=== PATIENT | male | born 1980 | race Caucasian/White ===

== ENCOUNTER 2019-06-04 23:01 | Emergency (ER) | payer SELFPAY ==
--- NOTE | 2019-06-05 02:02 | EDM.PDOC ---
ED HPI GENERAL MEDICAL PROBLEM - General Chief Complaint: Flank Pain Stated Complaint: LEFT SIDE PAIN Time Seen by Provider: 06/05/19 01:17 Source of Information: Reports: Patient History Limitations: Reports: No Limitations - History of Present Illness INITIAL COMMENTS - FREE TEXT/NARRATIVE: Mr. Daily is a very pleasant 39-year-old man with no chronic medical issues who states he developed sudden onset left flank pain around 22:15 to 22:30 tonight. The pain is stabbing and sharp in character. It does not radiate anywhere. It is worse if he is supine or if he takes a deep breath, otherwise, the patient has not identified any modifiers. He has not had associated fever, nausea, vomiting, constipation, diarrhea, urinary symptoms, or gross hematuria. The patient denies recent lower extremity edema. The patient states that he had similar symptoms, brief, about 3 times over the past week. The patient did not take any [id number] or home remedies prior to coming to the ED. The patient does not have a PCP. His vaccinations are not up-to-date, and he has not received an influenza vaccine this season. Left Flank Pain Score (Numeric/FACES): 10 - Related Data Allergies Allergy/AdvReac Type Severity Reaction Status Date / Time No Known Allergies Allergy Verified 06/04/19 23:05 Home Meds: Home Meds diphenhydrAMINE [Benadryl] 50 mg PO ONCALL PRN 06/04/19 [History] Orphenadrine [Norflex] 100 mg PO BID PRN #14 tab 06/07/19 [Rx] Past Medical History Endocrine/Metabolic History: Reports: Obesity/BMI 30+ Social & Family History - Tobacco Use Smoking Status *Q: Never Smoker - Alcohol Use Alcohol Use History: No - Recreational Drug Use Recreational Drug Use: No - Living Situation & Occupation Living situation: Reports: Single, with Significant Other (Fiance), with Family (4 kids) Occupation: Employed ([employer]) ED ROS GENERAL - Review of Systems Review Of Systems: ROS reveals no pertinent complaints other than HPI. ED EXAM, GENERAL - Physical Exam Exam: See Below Exam Limited By: No Limitations General Appearance: Alert, WD/WN, No Apparent Distress Eye Exam: Bilateral Eye: EOMI, Normal Inspection Ears: Normal External Exam, Hearing Grossly Normal Nose: Normal Inspection Throat/Mouth: Normal Inspection, Normal Lips, Normal Voice, No Airway Compromise Head: Atraumatic, Normocephalic Neck: Normal Inspection, Full Range of Motion Respiratory/Chest: No Respiratory Distress, Lungs Clear, Normal Breath Sounds, No Accessory Muscle Use Cardiovascular: Normal Peripheral Pulses, Regular Rate, Rhythm, No Edema, No Gallop, No JVD, No Murmur, No Rub Peripheral Pulses: 4+: Radial (L), Radial (R) GI/Abdominal: Normal Bowel Sounds, Soft, Non-Tender, No Organomegaly, No Distention, No Abnormal Bruit, No Mass (Male) Exam: Deferred Rectal (Males) Exam: Deferred Back Exam: Normal Inspection, Full Range of Motion. No: CVA Tenderness (L), CVA Tenderness (R) Extremities: Normal Inspection, Normal Range of Motion, No Pedal Edema, Normal Capillary Refill Neurological: Alert, Oriented, Normal Cognition, No Motor/Sensory Deficits Psychiatric: Normal Affect Skin Exam: Warm, Dry, Intact, Normal Color, No Rash Course - Vital Signs Last Recorded V/S: Last Vital Signs Temp 37.6 C 06/04/19 23:05 Pulse 123 H 06/04/19 23:05 Resp 22 H 06/04/19 23:05 BP 200/116 H 06/04/19 23:05 Pulse Ox 97 06/04/19 23:05 - Orders/Labs/Meds Labs: Laboratory Tests 06/04/19 06/05/19 Range/Units 23:16 00:14 D-Dimer, Quantitative 0.36 (0.19-0.50) mg/L Urine Color Yellow (Yellow) Urine Appearance Clear (Clear) Urine pH 6.0 (5.0-8.0) Ur Specific [place] > or = 1.030 (1.005-1.030) Urine Protein 1+ H (Negative) Urine Glucose (UA) Negative (Negative) Urine Ketones Negative (Negative) Urine Occult Blood Negative (Negative) Urine Nitrite Negative (Negative) Urine Bilirubin Negative (Negative) Urine Urobilinogen 0.2 (0.2-1.0) Ur Leukocyte Esterase Negative (Negative) Urine RBC 0-5 (0-5) /hpf Urine WBC 0-5 (0-5) /hpf Ur Epithelial Cells 0-5 (0-5) /hpf Urine Bacteria Not seen (FEW) /hpf Urine Mucus Not seen (FEW) /hpf Meds: Medications Discontinued Medications Generic Name Dose Route Start Last Admin Trade Name Khadijah PRN Reason Stop Dose Admin Ibuprofen 600 mg 06/05/19 02:47 06/05/19 02:59 Motrin PO 06/05/19 02:48 600 mg ONETIME ONE Administration Orphenadrine Citrate 100 mg 06/05/19 02:47 06/05/19 03:00 Norflex PO 06/05/19 02:48 100 mg ONETIME STA Administration - Re-Assessments/Exams Free Text/Narrative Re-Assessment/Exam: 06/05/19 01:54 The patient's initial presentation was very suggestive of a ureterolith, however , his urinalysis found no blood. About 20% of ureterolith's have no blood in the urine, so that does not mean that a ureterolith has been ruled out, however , the patient's pain has since diminished significantly, now down to about a "2 " from an initial "6". Under those circumstances, I am not recommending a CT scan of the abdomen and pelvis, as that would be unnecessary radiation and cost , given that the patient has likely passed the stone. The patient mentioned, however, that his pain is made worse when he took a deep breath, suggesting a pulmonary embolus. Additionally, his pain did not radiate to the abdomen or groin, which kidney stones traditionally do. We therefore agreed that we will check a D-dimer to rule out a PE, and if elevated, a CT angiogram of his chest. The patient went on to mention, however, that on about 3 occasions over the past week, when he reached or leaned, he had similar, although less severe pain , now suggesting a musculoskeletal etiology. If the patient's D-dimer returns negative, I will conclude that he either had a ureterolith that has already passed, or a muscle spasm, and I will treat with Norflex and ibuprofen. 06/05/19 02:50 The patient's D-dimer returned within normal limits at 0.36. As above, the patient is most likely suffering from a muscle spasm, although a passed a ureterolith is also possible. The patient will be started on Norflex and ibuprofen, and I will prescribe a 7-day course of Norflex in addition. The patient declined an offer for referral to a PCP. He also declined an offer for an influenza vaccine. Departure - Departure Time of Disposition: 02:51 Disposition: Home, Self-Care 01 Condition: Good Clinical Impression: Muscle spasm of back - Discharge Information *PRESCRIPTION DRUG MONITORING PROGRAM REVIEWED*: Not Applicable *COPY OF PRESCRIPTION DRUG MONITORING REPORT IN PATIENT JAKE: Not Applicable Prescriptions: Orphenadrine [Norflex] 100 mg PO BID PRN #14 tab PRN Reason: Spasms Instructions: Muscle Cramps and Spasms, [id number] Referrals: PCP,None [Primary Care Provider] - Forms: ED Department Discharge Additional Instructions: You were seen in the emergency room for sudden onset left flank pain. Workup in the ER included a urinalysis and a D-dimer. Your urinalysis showed no blood, and your D-dimer returned within normal limits , indicating that you do not have a blood clot in your lungs. Based on your history, physical exam, and ER test, the cause of your left flank pain was most likely a muscle spasm, although it is also possible that you passed a kidney stone. You have been started on the muscle relaxant Norflex. A prescription for Norflex has been sent to [facility], located in the [facility] across [address] from the hospital. Take one tablet of Norflex every 12 hours, starting this evening, 06/05/2019, as prescribed. In addition to Norflex, you may also take [id number] ibuprofen, 2 to 3 tablets (400-600 mg) every 8 hours, with food, as needed for discomfort. If any other problems, please do not hesitate to return to the ER.
[2019-06-05] MEDS ORDERED: Ibuprofen 600 MG Tab PO ONE (02:47)
[2019-06-05] MEDS ORDERED: Orphenadrine 100 MG Tab.ER PO STA (02:47)
== END 2019-06-05 03:04 | disposition home or self-care (01) ==
LOC: JD.ED 23:01
DX: M62.830 Muscle spasm of back (principal); E66.9 Obesity, unspecified; Z68.33 Body mass index [BMI] 33.0-33.9, adult
CPT/HCPCS: 36415; 81001; 85379; 99284; A9270; 99283